=== PATIENT | female | born 1965 ===

== ENCOUNTER 2020-10-31 09:23 | Outpatient (REF) | payer OTHER, SELFPAY ==
[2020-10-31 10:52] LABS: Alanine Aminotransferase 8 U/L (0-31); Albumin Level 4.4 g/dL (3.5-5.0); Alkaline Phosphatase 102 U/L (39-117); Anion Gap 13 (12-20); Aspartate Amino Transferase 14 U/L (5-31); Bilirubin Total 0.5 mg/dL (0.0-1.0); Blood Urea Nitrogen 12 mg/dL (9-16); Calcium 9.3 mg/dL (8.4-10.2); Carbon Dioxide 26 mmol/L (22-29); Chloride 103 mmol/L (96-108); Cholesterol 234 mg/dL; Estimated Glomerular Filt Rate > 60; Glucose Random 96 mg/dL (60-115); HDL Cholesterol 42 mg/dL; LDL Cholesterol Calculated 159 mg/dl; Potassium 4.2 mmol/L (3.3-5.1); Sodium 138 mmol/L (135-145); Triglycerides 165 mg/dL
[2020-10-31 11:01] LABS: Thyroid Stimulating Hormone 10.46 uIU/mL (0.32-4.0)
== END 2020-10-31 09:24 | disposition home or self-care (01) ==
LOC: HO.10HDL 09:23
PROVIDERS: Visit Provider Internal Medicine
DX: E78.2 Mixed hyperlipidemia (principal); E89.0 Postprocedural hypothyroidism; F33.42 Major depressive disorder, recurrent, in full remission; K05.00 Acute gingivitis, plaque induced; Z72.0 Tobacco use
CPT/HCPCS: 36415; 80053; 80061; 84443

== ENCOUNTER 2020-12-19 07:40 | Outpatient (REF) | payer OTHER, SELFPAY ==
[2020-12-19 10:38] LABS: Alanine Aminotransferase 11 U/L (0-31); Alkaline Phosphatase 92 U/L (39-117); Anion Gap 13 (12-20); Aspartate Amino Transferase 14 U/L (5-31); Bilirubin Total 0.5 mg/dL (0.0-1.0); Blood Urea Nitrogen 12 mg/dL (9-16); Calcium 8.9 mg/dL (8.4-10.2); Carbon Dioxide 25 mmol/L (22-29); Chloride 106 mmol/L (96-108); Cholesterol 191 mg/dL; Estimated Glomerular Filt Rate > 60; Glucose Fasting 103 mg/dL (60-99); HDL Cholesterol 38 mg/dL; LDL Cholesterol Calculated 122 mg/dl; Potassium 4.2 mmol/L (3.3-5.1); Sodium 140 mmol/L (135-145); Total Protein 7.3 g/dL (6.5-8.0); Triglycerides 158 mg/dL
[2020-12-19 11:02] LABS: Thyroid Stimulating Hormone 7.94 uIU/mL (0.32-4.0)
== END 2020-12-19 07:41 | disposition home or self-care (01) ==
LOC: HO.10HDL 07:40
PROVIDERS: Visit Provider Internal Medicine
DX: Z00.01 Encounter for general adult medical examination with abnormal findings (principal); E03.9 Hypothyroidism, unspecified; E78.00 Pure hypercholesterolemia, unspecified; R07.89 Other chest pain
CPT/HCPCS: 36415; 80053; 80061; 84443

== ENCOUNTER → 2021-01-16 13:38 | Outpatient (BNVA) | payer OTHER, SELFPAY | PROVIDERS: PCP Internal Medicine; Visit Provider Internal Medicine Pulmonary Disease | DX: J45.909 Unspecified asthma, uncomplicated (principal); G47.33 Obstructive sleep apnea (adult) (pediatric) | CPT/HCPCS: 99202 ==

== ENCOUNTER → 2021-02-12 08:54 | Outpatient (REF) | payer OTHER, SELFPAY | LOC: HO.SL 08:54 | PROVIDERS: PCP Internal Medicine; Visit Provider Internal Medicine Pulmonary Disease | DX: G47.33 Obstructive sleep apnea (adult) (pediatric) (principal) | CPT/HCPCS: 95806 ==

== ENCOUNTER 2021-02-20 10:47 | Outpatient (REF) | payer OTHER, SELFPAY ==
--- NOTE | 2021-02-20 17:20 | PFT_ITS ---
INDICATION: Asthma. SPIROMETRY: The FEV1 to FVC 87% free bronchodilators. The patient had just used her albuterol, so therefore bronchodilators were not used. FEV1 of 1.7 L, which is 73% predicted; and an FVC of 2.16 L, which is 67% predicted. Maximum voluntary ventilation only 49% predicted. LUNG VOLUMES: Total lung capacity 78% predicted with an expiratory reserve volume of 28% predicted. DIFFUSION CAPACITY: DLCO 75% predicted, although does correct to normal 98% when correcting for the alveolar volume. COMPARISONS: Not available. INTERPRETATION: No obstructive ventilatory defects. Bronchodilators were not used since the patient had just used them. The patient does have a moderate decrease in the maximum voluntary ventilation, which could be secondary to deconditioning, although cannot rule out neuromuscular conditions. Lung volumes did demonstrate a mild restrictive ventilatory defect likely to do with her body habitus as her expiratory reserve volume is decreased to 28% predicted. However, cannot rule out occult interstitial lung conditions nor neuromuscular conditions at this time. The patient does have a mild diffusion impairment that does correct to normal when correcting for the alveolar volume. Clinical correlation warranted. If asthma is in the differential, methacholine challenge may be helpful in assessing for hyper-reactive airways, otherwise follow clinically. MD IRENE Benoit/MODDevorah / [id number]
== END 2021-02-20 10:48 | disposition home or self-care (01) ==
LOC: HO.RESP 10:47
PROVIDERS: PCP Internal Medicine; Visit Provider Internal Medicine Pulmonary Disease
DX: J45.909 Unspecified asthma, uncomplicated (principal)
CPT/HCPCS: 94010; 94727; 94729

== ENCOUNTER → 2021-03-01 13:41 | Outpatient (BNVA) | payer OTHER, SELFPAY | PROVIDERS: PCP Internal Medicine; Visit Provider Internal Medicine Pulmonary Disease | DX: J45.30 Mild persistent asthma, uncomplicated (principal); G47.33 Obstructive sleep apnea (adult) (pediatric) | CPT/HCPCS: 99212 ==

== ENCOUNTER → 2021-06-05 13:14 | Outpatient (BNVA) | payer OTHER, SELFPAY | PROVIDERS: PCP Internal Medicine; Visit Provider Internal Medicine Pulmonary Disease | DX: J45.30 Mild persistent asthma, uncomplicated (principal); G47.33 Obstructive sleep apnea (adult) (pediatric); F17.210 Nicotine dependence, cigarettes, uncomplicated | CPT/HCPCS: 99212 ==

== ENCOUNTER 2021-07-17 09:34 | Outpatient (REF) | payer OTHER, SELFPAY ==
[2021-07-17 11:21] LABS: MANUAL DIFF FLAG NO
[2021-07-17 11:55] LABS: Basophils Absolute Auto 0.1 X10*3/uL (0.0-0.2); Basophils Percent Auto 0.8 % (0-2); Eosinophils Absolute Auto 0.2 X10*3/uL (0.0-0.4); Eosinophils Percent Auto 1.8 % (0-4); Hematocrit 40.4 % (37.0-47.0); Hemoglobin 12.7 g/dl (12.0-16.0); Imm Gran Abs Auto 0.02 X10*3/uL (0.00-0.03); Imm Gran Pct Auto 0.2 % (0.0-0.4); Lymphocytes Absolute Auto 3.2 X10*3/uL (1.2-4.9); Mean Corpuscular HGB Conc 31.4 g/dl (31.0-35.0); Mean Corpuscular Hemoglobin 27.1 pg (27.0-33.0); Mean Corpuscular Volume 86.3 fL (80.0-98.0); Mean Platelet Volume 11.2 fL (9.4-12.3); Monocytes Absolute Auto 0.4 X10*3/uL (0.1-1.2); Monocytes Percent Auto 4.8 % (2-11); Neutrophils Percent Auto 56.4 % (45-73); Platelet Count 298 X10*3/uL (160-400); Red Blood Count 4.68 X10*6/uL (4.20-5.50); Red Cell Distribution Width 14.4 % (11.0-16.0); White Blood Count 8.9 X10*3/uL (4.8-10.8)
[2021-07-17 12:16] LABS: Alanine Aminotransferase 12 U/L (0-31); Albumin Level 4.2 g/dL (3.5-5.0); Alkaline Phosphatase 100 U/L (39-117); Anion Gap 14 (12-20); Aspartate Amino Transferase 17 U/L (5-31); Bilirubin Total 0.7 mg/dL (0.0-1.0); Blood Urea Nitrogen 11 mg/dL (9-16); Calcium 9.8 mg/dL (8.4-10.2); Carbon Dioxide 26 mmol/L (22-29); Chloride 106 mmol/L (96-108); Cholesterol 205 mg/dL; Estimated Glomerular Filt Rate > 60; Glucose Fasting 106 mg/dL (60-99); HDL Cholesterol 41 mg/dL; LDL Cholesterol Calculated 140 mg/dl; Potassium 4.6 mmol/L (3.3-5.1); Sodium 141 mmol/L (135-145); Total Protein 7.6 g/dL (6.5-8.0); Triglycerides 123 mg/dL
[2021-07-17 12:18] LABS: Thyroid Stimulating Hormone 6.94 uIU/mL (0.32-4.0)
== END 2021-07-17 09:35 | disposition home or self-care (01) ==
LOC: HO.HMGCLDS 09:34
PROVIDERS: Visit Provider Internal Medicine
DX: D50.9 Iron deficiency anemia, unspecified (principal); E89.0 Postprocedural hypothyroidism; I10 Essential (primary) hypertension; Z72.0 Tobacco use
CPT/HCPCS: 36415; 80053; 80061; 84443; 85025

== ENCOUNTER → 2021-09-20 10:52 | Outpatient (BNVA) | payer OTHER, SELFPAY | PROVIDERS: PCP Internal Medicine; Visit Provider Internal Medicine | DX: R07.89 Other chest pain (principal); J45.909 Unspecified asthma, uncomplicated; G47.33 Obstructive sleep apnea (adult) (pediatric) | CPT/HCPCS: 99212 ==

== ENCOUNTER → 2021-10-10 12:56 | Outpatient (BNVA) | payer OTHER, SELFPAY | PROVIDERS: PCP Internal Medicine; Visit Provider Internal Medicine Pulmonary Disease | DX: J45.909 Unspecified asthma, uncomplicated (principal); G47.33 Obstructive sleep apnea (adult) (pediatric) | CPT/HCPCS: 99212 ==

== ENCOUNTER 2021-11-08 09:28 | Outpatient (REF) | payer OTHER, SELFPAY ==
[2021-11-08 11:32] LABS: Thyroid Stimulating Hormone 4.19 uIU/mL (0.32-4.0)
[2021-11-08 12:13] LABS: Cholesterol 173 mg/dL; HDL Cholesterol 43 mg/dL; LDL Cholesterol Calculated 107 mg/dl; Triglycerides 117 mg/dL
== END 2021-11-08 09:29 | disposition home or self-care (01) ==
LOC: HO.LAB 09:28
PROVIDERS: PCP Internal Medicine; Visit Provider Internal Medicine
DX: E03.8 Other specified hypothyroidism (principal); E78.00 Pure hypercholesterolemia, unspecified; G47.33 Obstructive sleep apnea (adult) (pediatric); J45.909 Unspecified asthma, uncomplicated; M54.89 Other dorsalgia
CPT/HCPCS: 36415; 80061; 84443

== ENCOUNTER → 2022-01-09 12:42 | Outpatient (BNVA) | payer OTHER, SELFPAY | PROVIDERS: PCP Internal Medicine; Visit Provider Internal Medicine Pulmonary Disease | DX: J45.909 Unspecified asthma, uncomplicated (principal); G47.33 Obstructive sleep apnea (adult) (pediatric) | CPT/HCPCS: 99212 ==

== ENCOUNTER → 2022-03-11 11:21 | Outpatient (BNVA) | payer OTHER, SELFPAY | PROVIDERS: PCP Internal Medicine; Visit Provider Internal Medicine Pulmonary Disease | DX: J45.30 Mild persistent asthma, uncomplicated (principal); G47.33 Obstructive sleep apnea (adult) (pediatric); E66.9 Obesity, unspecified; Z68.38 Body mass index [BMI] 38.0-38.9, adult | CPT/HCPCS: 99212 ==

== ENCOUNTER 2022-03-13 09:46 | Outpatient (REF) | payer OTHER, SELFPAY ==
[2022-03-13 11:14] LABS: Estimated Average Glucose 117 mg/dL; Hemoglobin A1c % 5.7 %
[2022-03-13 15:07] LABS: Alanine Aminotransferase 12 U/L (0-31); Albumin Level 4.1 g/dL (3.5-5.0); Alkaline Phosphatase 126 U/L (39-117); Anion Gap 13 (12-20); Aspartate Amino Transferase 15 U/L (5-31); Bilirubin Total 0.6 mg/dL (0.0-1.0); Blood Urea Nitrogen 12 mg/dL (9-16); Calcium 9.5 mg/dL (8.4-10.2); Carbon Dioxide 26 mmol/L (22-29); Chloride 107 mmol/L (96-108); Estimated Glomerular Filt Rate > 60; Glucose Random 97 mg/dL (60-115); Potassium 4.7 mmol/L (3.3-5.1); Sodium 141 mmol/L (135-145); Thyroid Stimulating Hormone 2.41 uIU/mL (0.32-4.0); Total Protein 7.2 g/dL (6.5-8.0)
== END 2022-03-13 09:47 | disposition home or self-care (01) ==
LOC: HO.LAB 09:46
PROVIDERS: PCP Internal Medicine; Visit Provider Internal Medicine
DX: Z00.00 Encounter for general adult medical examination without abnormal findings (principal); E03.8 Other specified hypothyroidism; I10 Essential (primary) hypertension; M23.91 Unspecified internal derangement of right knee; R73.01 Impaired fasting glucose; G47.33 Obstructive sleep apnea (adult) (pediatric); E78.00 Pure hypercholesterolemia, unspecified
CPT/HCPCS: 36415; 80053; 83036; 84443

== ENCOUNTER 2022-06-20 10:28 | Outpatient (REF) | payer MEDICARE, MEDICAID, SELFPAY ==
[2022-06-20 13:21] LABS: MANUAL DIFF FLAG NO
[2022-06-20 13:29] LABS: Basophils Absolute Auto 0.1 X10*3/uL (0.0-0.2); Basophils Percent Auto 0.8 % (0-2); Eosinophils Absolute Auto 0.4 X10*3/uL (0.0-0.4); Eosinophils Percent Auto 4.5 % (0-4); Hematocrit 37.6 % (37.0-47.0); Hemoglobin 11.8 g/dl (12.0-16.0); Imm Gran Abs Auto 0.03 X10*3/uL (0.00-0.03); Imm Gran Pct Auto 0.3 % (0.0-0.4); Lymphocytes Absolute Auto 3.4 X10*3/uL (1.2-4.9); Lymphocytes Percent Auto 37.5 % (20-40); Mean Corpuscular HGB Conc 31.4 g/dl (31.0-35.0); Mean Corpuscular Hemoglobin 26.5 pg (27.0-33.0); Mean Corpuscular Volume 84.3 fL (80.0-98.0); Mean Platelet Volume 10.6 fL (9.4-12.3); Monocytes Absolute Auto 0.4 X10*3/uL (0.1-1.2); Monocytes Percent Auto 4.8 % (2-11); Neutrophils Absolute Auto 4.7 x10*3/uL (2.0-8.3); Neutrophils Percent Auto 52.1 % (45-73); Platelet Count 287 X10*3/uL (160-400); Red Blood Count 4.46 X10*6/uL (4.20-5.50); Red Cell Distribution Width 14.9 % (11.0-16.0)
[2022-06-20 14:09] LABS: Erythrocyte Sedimentation Rate 38 MM/HR (0-20)
[2022-06-20 14:43] LABS: Rheumatoid Factor < 13.0 IU/mL (<15.0)
[2022-06-24 16:18] LABS: Cyclic Citrullinated Peptide <16 UNITS
[2022-06-25 13:44] LABS: ANA Pattern 2 Nuclear, Homogeneous; Anti Nuclear Antibody Screen POSITIVE (NEGATIVE); Anti Nuclear Antibody Titer 1:40 titer
== END 2022-06-20 10:29 | disposition home or self-care (01) ==
LOC: HO.10HDL 10:28
PROVIDERS: Visit Provider Internal Medicine
DX: E78.00 Pure hypercholesterolemia, unspecified (principal); I10 Essential (primary) hypertension; M13.0 Polyarthritis, unspecified; M79.18 Myalgia, other site
CPT/HCPCS: 36415; 82550; 85025; 85652; 86038; 86039; 86200; 86431

== ENCOUNTER 2022-11-18 09:11 | Outpatient (REF) | payer MEDICARE, MEDICAID, SELFPAY ==
[2022-11-18 11:06] LABS: Alanine Aminotransferase 13 U/L (0-31); Albumin Level 4.2 g/dL (3.5-5.0); Alkaline Phosphatase 116 U/L (39-117); Anion Gap 10 (12-20); Aspartate Amino Transferase 14 U/L (5-31); Bilirubin Total 0.5 mg/dL (0.0-1.0); Blood Urea Nitrogen 9 mg/dL (9-16); Calcium 10.1 mg/dL (8.4-10.2); Carbon Dioxide 29 mmol/L (22-29); Chloride 104 mmol/L (96-108); Cholesterol 147 mg/dL (<200); Estimated Glomerular Filt Rate > 60; Glucose Random 96 mg/dL (60-115); HDL Cholesterol 40 mg/dL (>40); LDL Cholesterol Calculated 85 mg/dL (<100); Potassium 4.3 mmol/L (3.3-5.1); Sodium 139 mmol/L (135-145); Total Protein 8.1 g/dL (6.5-8.0); Triglycerides 113 mg/dL (<150)
[2022-11-18 11:21] LABS: Thyroid Stimulating Hormone 14.45 uIU/mL (0.32-4.0)
== END 2022-11-18 09:12 | disposition home or self-care (01) ==
LOC: HO.10HDL 09:11
PROVIDERS: Visit Provider Internal Medicine
DX: E03.8 Other specified hypothyroidism (principal); M13.0 Polyarthritis, unspecified; M70.51 Other bursitis of knee, right knee; M79.18 Myalgia, other site
CPT/HCPCS: 36415; 80053; 80061; 84443

== ENCOUNTER 2022-11-22 11:06 | Outpatient (AMB) | payer MEDICARE, MEDICAID, SELFPAY ==
--- NOTE | 2022-11-22 11:06 | MHC.OFFVIS ---
Intake Vital Signs 11/22/22 11:07 Height 5 ft 3 in Weight 212 lb 11.937 oz BMI 37.7 BP 126/82 Blood Pressure Location Lt brachial Position Sitting Pulse 62 Pulse Source Doppler Pulse Oximetry (%) 97 Oxygen Delivery Method Room Air Intake Visit Reasons: asthma Allergies No Known Allergies Allergy (Verified 11/22/22 11:11) HPI asthma HPI Details 57-year-old lady, active 20+ pack-year smoker, followed for mild persistent asthma and moderate obstructive sleep apnea.? She continues to use Flovent 110 with good control of her underlying symptoms.? Patient has received her CPAP machine and has been using it with good control of her underlying symptoms. She denies recent exacerbations. [facility] Social History (Updated 11/22/22 @ 11:12 by OSMEL Huang) Patient Tobacco Use Status: Current everyday Tobacco user Cigarettes Per Day: 3 Review of Systems Const Denies daytime sleepiness, Denies excessive sweating, Denies fatigue, Denies fever(s), Denies lethargy, Denies malaise, Denies night sweats, Denies snoring and Denies weight loss Eyes Denies blurry vision and Denies itchy eyes ENT Denies nasal congestion, Denies post nasal drip, Denies sinus pain, Denies sinus pressure and Denies other ( Thrush) Card Denies chest pain, Denies pedal edema, Denies dyspnea, Denies orthopnea and Denies paroxysmal nocturnal dyspnea Resp Denies cough, Denies hemoptysis, Denies excessive phlegm production, Denies dyspnea, Denies snoring and Denies wheezing GI Denies abdominal pain and Denies heartburn Musc Denies myalgias, Denies arthralgias and Denies joint swelling Skin/Breast Denies rash Neuro Denies memory loss and Denies seizure-like activity Psych Denies abnormal sleep pattern, Denies anxiety and Denies memory loss Endo Denies excessive sweating, Denies fatigue and Denies heat intolerance Zhen/Lymph Denies easy bruising Aller/Immun Denies itchy eyes, Denies seasonal rhinorrhea and Denies wheezing Physical Exam Vital Signs: Last Vital Signs Pulse 62 11/22/22 11:07 BP 126/82 11/22/22 11:07 Pulse Ox 97 11/22/22 11:07 Oxygen Delivery Method Room Air 11/22/22 11:07 BMI result Body Mass Index 37.7 Const General: no acute distress and alert Nutritional Appearance: obese Orientation/consciousness: Other orientation findings ( oriented) HEENT Head: Yes atraumatic Eyes General: appearance normal, both eyes and all related structures Sclerae: sclerae normal EOM: EOMs intact bilaterally Neck Neck: Yes supple Lymphatic: no lymphadenopathy noted Resp Effort & Inspection: normal respiratory effort and no use of accessory muscles Auscultation: clear to auscultation bilaterally Cardio Rate: regular rate Rhythm: regular rhythm Heart sounds: no gallops, no murmurs and no rubs Skin General skin exam: other ( warm) Extrem General: No clubbing, No cyanosis and No edema Assessment & Plan Assessment & Plan (1) Asthma: Code(s): J45.909 - Unspecified asthma, uncomplicated Plan: Well controlled on current regimen of Flovent and albuterol MDI. Continue current regimen. (2) DELANO (obstructive sleep apnea): Code(s): G47.33 - Obstructive sleep apnea (adult) (pediatric) Plan: Well controlled on current CPAP therapy. Continue current CPAP therapy. Coding Level of Care Code Est Pt Level 4 (04819) Diagnoses Asthma J45.909 DELANO (obstructive sleep apnea) G47.33
[2022-11-22 11:07] VITALS: BP 126/82; PULSE 62; O2SAT 97; BMI 37.7
== END 2022-11-22 11:19 | disposition home or self-care (01) ==
PROVIDERS: PCP Internal Medicine; Visit Provider Internal Medicine Pulmonary Disease
DX: J45.909 Unspecified asthma, uncomplicated (principal); G47.33 Obstructive sleep apnea (adult) (pediatric)
CPT/HCPCS: 99214

== ENCOUNTER → 2022-11-22 11:06 | Outpatient (BNVA) | payer MEDICARE, MEDICAID, SELFPAY | PROVIDERS: PCP Internal Medicine; Visit Provider Internal Medicine Pulmonary Disease | DX: J45.30 Mild persistent asthma, uncomplicated (principal); G47.33 Obstructive sleep apnea (adult) (pediatric); F17.210 Nicotine dependence, cigarettes, uncomplicated; Z79.899 Other long term (current) drug therapy; Z99.89 Dependence on other enabling machines and devices | CPT/HCPCS: 99212 ==

== ENCOUNTER 2023-01-01 14:56 | Outpatient (AMB) | payer MEDICARE, MEDICAID, SELFPAY ==
--- NOTE | 2023-01-01 15:10 | MHC.OFFVIS ---
Intake Vital Signs 01/01/23 15:12 Height 5 ft 3 in Weight 212 lb 15.465 oz BMI 37.7 BP 110/75 Blood Pressure Location Rt brachial Position Sitting Pulse 72 Pulse Source Pulse Oximeter Temp 97.3 F Temp Source Skin Pulse Oximetry (%) 95 Oxygen Delivery Method Room Air Intake Visit Reasons: Polyarthralgia Intake Note: New patient here today for polyarthralgia. c/o generalized myalgias Last Code Striper Required: Yes Last Code Striper Language: Geriatric Assistant Name: Ranjith [id number] Information Interpreted: clinical only Accompanied by: Self / Same As Patient Allergies No Known Allergies Allergy (Verified 01/01/23 15:15) Medication List - Last Reconciled 01/01/23 by Isai Langford MD bupropion HCl 450 mg PO QAM fluticasone propionate 110 mcg/actuation 2 puffs inhalation BID ibuprofen 600 mg PO TID levothyroxine 100 mcg PO DAILY lorazepam 0.5 mg PO DAILY PRN rosuvastatin 40 mg PO DAILY valsartan-hydrochlorothiazide 320-12.5 mg 1 tab PO DAILY HPI HPI Comments History of Present Illness Details This is a 57-year-old female who presents for evaluation of a positive FRANCESCA. Patient states that she has multiple joints and tendons that crack including her knees, shoulders, elbows. It is usually worse in the morning and improves on the rest of the day. She denies any skin rashes. She believes that her aunt has rheumatoid arthritis. She denies any history of DVT/PE. Patient had 4 pregnancies with no abortions or miscarriages. Denies any swollen joints. [facility] Surgical History History of ear surgery H/O eye surgery Family History Father Cancer of pancreas Mother Diabetes Other Arthritis Thyroid disease Social History Household Members: Children Patient Tobacco Use Status: Current everyday Tobacco user Cigarettes Per Day: 3 Current occupational status: disabled Female Reproductive History Menstrual Total pregnancies: 4 Review of Systems Const Reports weakness Eyes Reports eye pain GI Reports heartburn Musc Reports arthralgias Neuro Reports weakness Physical Exam Vital Signs: Last Vital Signs Temp 97.3 F 10/04/23 15:12 Pulse 72 01/01/23 15:12 BP 110/75 01/01/23 15:12 Pulse Ox 95 01/01/23 15:12 Oxygen Delivery Method Room Air 01/01/23 15:12 BMI result Body Mass Index 37.7 Const General: cooperative, healthy appearing and comfortable Nutritional Appearance: obese Orientation/consciousness: patient oriented x3 Limitations: no limitations HEENT Head: Yes normocephalic and Yes atraumatic Mouth: moist mucous membranes Resp Effort & Inspection: normal respiratory effort and able to speak in complete sentences Auscultation: clear to auscultation bilaterally Cardio Rate: regular rate Rhythm: regular rhythm GI Inspection: No distended Palpation (GI): Soft to palpation and nontender Skin General skin exam: no rashes or lesions noted Neuro General: patient oriented x3 Extrem Other: Mild osteoarthritic changes of both hands with no active synovitis Normal nailfold capillaroscopy Normal range of motion of both shoulders , elbows and knees without pain Assessment & Plan Assessment & Plan (1) FRANCESCA positive: Code(s): R76.8 - Other specified abnormal immunological findings in serum Plan: This is a 57-year-old female who presents for evaluation of a positive FRANCESCA 1-80 homogeneous and 1-40 cytoplasmic/reticular. I do not see any evidence of an autoimmune rheumatic disease upon my evaluation. Explained to patient that 20% of the population can have a positive FRANCESCA with no underlying autoimmune rheumatic disease. The significance of her positive FRANCESCA is unclear and can be related to her thyroid disease. Follow-up for any new or worsening symptoms Plan I spent 30 minutes reviewing patient's chart, evaluating patient, counseling patient and documenting in the chart Coding Level of Care Code New Pt Level 3 (02993) Diagnoses FRANCESCA positive R76.8
[2023-01-01 15:12] VITALS: BP 110/75; PULSE 72; TEMP 36.3; O2SAT 95; BMI 37.7
== END 2023-01-01 15:54 | disposition home or self-care (01) ==
PROVIDERS: PCP Internal Medicine; Visit Provider Student in an Organized Health Care Education/Training Program
DX: R76.8 Other specified abnormal immunological findings in serum (principal)
CPT/HCPCS: 99203

== ENCOUNTER → 2023-01-01 14:56 | Outpatient (BNVA) | payer MEDICARE, MEDICAID, SELFPAY | PROVIDERS: PCP Internal Medicine; Visit Provider Student in an Organized Health Care Education/Training Program ==

== ENCOUNTER 2023-01-31 09:23 | Outpatient (REF) | payer MEDICARE, MEDICAID, SELFPAY ==
[2023-01-31 11:22] LABS: Thyroid Stimulating Hormone 4.86 uIU/mL (0.32-4.0)
== END 2023-01-31 09:24 | disposition home or self-care (01) ==
LOC: HO.10HDL 09:23
PROVIDERS: Visit Provider Internal Medicine
DX: E03.8 Other specified hypothyroidism (principal); E78.00 Pure hypercholesterolemia, unspecified; I10 Essential (primary) hypertension; K12.0 Recurrent oral aphthae
CPT/HCPCS: 36415; 84443

== ENCOUNTER 2023-12-10 10:43 | Outpatient (AMB) | payer MEDICARE, MEDICAID, SELFPAY ==
[2023-12-10 10:52] VITALS: BP 106/62; PULSE 71; O2SAT 97; BMI 37.3
--- NOTE | 2023-12-10 10:52 | MHC.OFFVIS ---
Vital Signs 12/10/23 10:52 Height 5 ft 3 in Weight 210 lb 8.663 oz BMI 37.3 BP 106/62 Blood Pressure Location Lt brachial Position Sitting Pulse 71 Pulse Source Doppler Pulse Oximetry (%) 97 Oxygen Delivery Method Room Air Intake Visit Reasons: CPAP supplies Senior Human Resources Representative Required: Yes Senior Human Resources Representative Name: Daisy hummel Torres Allergies No Known Allergies Allergy (Verified 01/01/23 15:15) HPI HPI CPAP supplies: Details: 58-year-old lady, active 20+ pack-year smoker, followed for mild persistent asthma and moderate obstructive sleep apnea.? She continues to use Flovent 110 with good control of her underlying symptoms.? She also has been using CPAP with good control of her underlying symptoms. She denies recent exacerbations. [facility] Surgical History History of ear surgery H/O eye surgery Family History Father Cancer of pancreas Mother Diabetes Other Arthritis Thyroid disease Social History Household Members: Children Patient Tobacco Use Status: Current everyday Tobacco user Cigarettes Per Day: 3 Current occupational status: disabled Review of Systems Const Denies daytime sleepiness, Denies excessive sweating, Denies fatigue, Denies fever(s), Denies lethargy, Denies malaise, Denies night sweats, Denies snoring and Denies weight loss Eyes Denies blurry vision and Denies itchy eyes ENT Denies nasal congestion, Denies post nasal drip, Denies sinus pain, Denies sinus pressure and Denies other ( Thrush) Card Denies chest pain, Denies pedal edema, Denies dyspnea, Denies orthopnea and Denies paroxysmal nocturnal dyspnea Resp Denies cough, Denies hemoptysis, Denies excessive phlegm production, Denies dyspnea, Denies snoring and Denies wheezing GI Denies abdominal pain and Denies heartburn Musc Denies myalgias, Denies arthralgias and Denies joint swelling Skin/Breast Denies rash Neuro Denies memory loss and Denies seizure-like activity Psych Denies abnormal sleep pattern, Denies anxiety and Denies memory loss Endo Denies excessive sweating, Denies fatigue and Denies heat intolerance Zhen/Lymph Denies easy bruising Aller/Immun Denies itchy eyes, Denies seasonal rhinorrhea and Denies wheezing Physical Exam Vital Signs: Last Vital Signs Pulse 71 12/10/23 10:52 BP 106/62 12/10/23 10:52 Pulse Ox 97 12/10/23 10:52 Oxygen Delivery Method Room Air 12/10/23 10:52 BMI result Body Mass Index 37.3 Const General: no acute distress and alert Nutritional Appearance: obese Orientation/consciousness: Other orientation findings ( oriented) HEENT Head: Yes atraumatic Eyes General: appearance normal, both eyes and all related structures Sclerae: sclerae normal EOM: EOMs intact bilaterally Neck Neck: Yes supple Lymphatic: no lymphadenopathy noted Resp Effort & Inspection: normal respiratory effort and no use of accessory muscles Auscultation: clear to auscultation bilaterally Cardio Rate: regular rate Rhythm: regular rhythm Heart sounds: no gallops, no murmurs and no rubs Skin General skin exam: other ( warm) Extrem General: No clubbing, No cyanosis and No edema Assessment & Plan Assessment & Plan (1) Asthma: Code(s): J45.909 - Unspecified asthma, uncomplicated Category: Medical Plan: Well controlled on current regimen of Flovent and albuterol MDI. Continue current regimen. (2) DELANO (obstructive sleep apnea): Code(s): G47.33 - Obstructive sleep apnea (adult) (pediatric) Category: Medical Plan: Well controlled on CPAP therapy. Continue CPAP therapy. Coding Level of Care Code Est Pt Level 4 (60276) Diagnoses Asthma J45.909 DELANO (obstructive sleep apnea) G47.33
== END 2023-12-10 11:15 | disposition home or self-care (01) ==
PROVIDERS: PCP Internal Medicine; Visit Provider Internal Medicine Pulmonary Disease
DX: J45.909 Unspecified asthma, uncomplicated (principal); G47.33 Obstructive sleep apnea (adult) (pediatric)
CPT/HCPCS: 99214

== ENCOUNTER → 2023-12-10 10:43 | Outpatient (BNVA) | payer MEDICARE, MEDICAID, SELFPAY | PROVIDERS: PCP Internal Medicine; Visit Provider Internal Medicine Pulmonary Disease | DX: G47.33 Obstructive sleep apnea (adult) (pediatric) (principal); J45.30 Mild persistent asthma, uncomplicated; F17.210 Nicotine dependence, cigarettes, uncomplicated; Z99.89 Dependence on other enabling machines and devices | CPT/HCPCS: 99212 ==

== ENCOUNTER 2024-06-01 14:35 | Emergency (ER) | payer MEDICARE, MEDICAID, SELFPAY ==
--- NOTE | ~2024-06-01 | XR_ITS ---
EXAMINATION: XR CHEST CLINICAL INFORMATION: CP COMPARISON: May 02, 2018 TECHNIQUE: 2 views of the chest were obtained. FINDINGS: No consolidation, pleural effusion or pneumothorax. Cardiomediastinal silhouette size is normal. Multilevel thoracolumbar spondylosis. S-shaped curvature of the thoracolumbar spine. Degenerative changes in the acromioclavicular joints. XR/XR chest 2V IMPRESSION: No acute airspace disease. Scoliosis and spondylosis, thoracolumbar spine. Electronically signed by: Kendrick Pennington MD 06/01/2024 03:20 PM NIKO RODARTE
--- NOTE | 2024-06-01 14:36 | ECG_ITS ---
Test Reason : chest pain Blood Pressure : */* mmHG Vent. Rate : 60 BPM Atrial Rate : 60 BPM P-R Int : 156 ms QRS Dur : 90 ms QT Int : 382 ms P-R-T Axes : 34 68 39 degrees QTcB Int : 382 ms Normal sinus rhythm Normal ECG When compared with ECG of 02-May-2018 08:52, No significant change was found Referred By: Generic ED Physician Electronically Signed By: ELIZA ARCINIEGA MD
[2024-06-01 14:54] VITALS: BP 143/71; PULSE 66; RESP 16; TEMP 36.7; O2SAT 98; BMI 35.8
--- NOTE | 2024-06-01 14:59 | ED.CHESTPAIN ---
HPI - Chest Pain General Chief Complaint: Chest Pain Stated Complaint: Chest pain, numbness L arm Time Seen by Provider: 06/02/24 02:22 Source: patient Mode of arrival: ambulatory Limitations: no limitations History of Present Illness ED Provider: Dr. Rachel Orr HPI narrative: Patient comes to the emergency room complaining of epigastric and chest burning sensation. Patient states that she gets this symptoms often especially when she eats certain foods. Patient states that she ran out of her medications for GERD a few weeks ago and everything that she eats, she feels that burning sensation. Denies chest pain, patient states that sometimes she feels a bit of spasms on the left side of the upper back but no chest pain. Patient denies nausea vomiting or diarrhea. Patient reports that her symptoms have been intermittent for several years. Patient has never been seen by Gastroenterology. Related Data Home Medications ?Medication ?Instructions ?Recorded ?Confirmed fluticasone propionate 110 2 puff inhalation BID 01/16/21 09/20/21 mcg/actuation HFA aerosol inhaler levothyroxine 100 mcg tablet 100 mcg PO DAILY 01/16/21 09/20/21 valsartan 320 1 tab PO DAILY 01/16/21 09/20/21 mg-hydrochlorothiazide 12.5 mg tablet ibuprofen 600 mg tablet 600 mg PO TID 10/10/21 bupropion HCl 300 mg 24 hr tablet, 450 mg PO QAM 01/01/23 extended release lorazepam 0.5 mg tablet 0.5 mg PO DAILY PRN 01/01/23 rosuvastatin 40 mg tablet 40 mg PO DAILY 01/01/23 Previous Rx's ?Medication ?Instructions ?Recorded omeprazole 40 mg capsule,delayed 40 mg PO DAILY #90 caps 06/02/24 release Allergies Allergy/AdvReac Type Severity Reaction Status Date / Time No Known Allergies Allergy Verified 06/01/24 15:01 Review of Systems Review of Systems: Constitutional : No Weight loss, No Fever, No Chills, No Night Sweats, No Fatigue, No Malaise ENT/Mouth : No Hearing loss, No Ear Pain, No Nasal Congestion, No Sinus Pain, No Hoarseness, No sore throat, No Rhinorrhea, No Swallowing Difficulty Eyes: No Eye Pain, No Swelling, No Redness, No Foreign Body, No Discharge, No Vision Changes Cardiovascular : No Chest Pain, No SOB, No Dyspnea on Exertion, No Orthopnea, No Edema, No Palpitations Respiratory : No Cough, No Sputum, No Wheezing, No Smoke Exposure, No Dyspnea Gastrointestinal : No Nausea, No Vomiting, No Diarrhea, No Constipation, complaining of epigastric burning sensation radiating up the esophagus to the throat, No abdominal Pain, No Hematochezia, No Melena Genitourinary : no irregular bleeding, No Dysuria, No Urinary Frequency, No Hematuria, No Urinary Incontinence, No Urgency, No Flank Pain, No Urinary Flow Changes, No Hesitancy Musculoskeletal : No joint pain, No Myalgias, No Joint Swelling Skin : No Skin Lesions, No rash Neuro : No Weakness, No Numbness, No Paresthesias, No Loss of Consciousness, No Dizziness, No Headache Psych : No Anxiety/Panic, No Depression, No SI/HI/AH/VH, No Social Issues, Heme/Lymph: No Bruising, No Bleeding,No Lymphadenopathy Endocrine : No Polyuria, No Polydipsia, No Temperature Intolerance [facility] Past Medical History Medical History GERD (gastroesophageal reflux disease) Asthma Surgical History History of ear surgery H/O eye surgery Family History Family History Father Cancer of pancreas Mother Diabetes Other Arthritis Thyroid disease Social History Social History Household Members: Children Patient Tobacco Use Status: Current everyday Tobacco user Cigarettes Per Day: 3 Smoked in Last 30 Days: Yes Use of substances other than those prescribed or required for medical reasons: No Advance Directives: No Advance Directives Information Provided: Yes Patient : No Current occupational status: disabled Physical Exam Vital Signs: Vital Signs: Last Vital Signs Temp 98.7 F 06/02/24 02:36 Pulse 66 06/02/24 02:36 Resp 16 06/02/24 02:36 BP 141/69 H 06/02/24 02:36 Pulse Ox 96 06/02/24 02:36 O2 Del Method Room Air 06/02/24 02:36 BMI result Body Mass Index 35.8 Const: Other: Appearance: Alert. Oriented X3. No acute distress. Eyes: Pupils equal, round and reactive to light. ENT: Pharynx normal. Neck: Normal inspection. Neck supple. No lymph nodes noted. No crepitus CVS: Normal heart rate and rhythm. Pulses normal. Normal S1 and S2 Respiratory: No respiratory distress. Breath sounds normal. No Wheezing. No rales Abdomen: Soft and nontender. No rigidity. No distention. Skin: Skin warm and dry. Normal skin color. Normal skin turgor. Extremities: No lower extremity edema. No Lacerations. No Rash Neuro: Oriented X 3. No motor deficit. No sensory deficit. Moving all extremities. No slurred speech. CN 2 through 12 grossly intact Psych: calm, cooperative, normal affect Course Course Course Narrative: This is an RME: Additional HPI, ROS, PE not included below will be deferred to primary provider. RME assessment and note performed by: Yuridia Bond PA-C This is a 58-year-old Swedish-speaking female, with a history of asthma, DELANO, who presents emergency department with complaints of intermittentchest pain x 3 days. Denies any cough, nausea, vomiting. she was pain comes and goes for a minute and resolved on own. had COVID 3 weeks ago. Recent travel, surgery, hospitalizations. does report pain worsens eating spicy foods. Admits that she was getting more heartburn lately Plan: Labs chest x-ray evaluation needs Medications Administered Discontinued Medications Generic Name Dose Route Start Last Admin Trade Name Freq PRN Reason Stop Dose Admin Al Hydroxide/Mg Hydroxide 30 ml 06/02/24 02:34 06/02/24 02:46 Magnesium Hydrox/Alum Hydrox 30 Ml Oral.Susp PO 06/02/24 02:35 30 ml ONCE ONE Administration Famotidine 20 mg 06/02/24 02:35 06/02/24 02:46 Famotidine 20 Mg Tablet PO 06/02/24 02:36 20 mg ONCE ONE Administration Lidocaine HCl 15 ml 06/02/24 02:34 06/02/24 02:46 Lidocaine Hcl Viscous 2 % 15 Ml Solution MUCOUS MEM 06/02/24 02:35 15 ml ONCE ONE Administration Medical Decision Making Medical Decision Making [facility] Narrative: My interpretation of labs: Patient's white blood cell count 12.2, chemistry within normal limits, troponin x2 negative, LFTs normal. Serology negative for flu RSV and COVID. Chest x-ray does not show any acute abnormality. Chest x-ray: No acute airspace disease, no free air under the diaphragm Patient being given a GI cocktail including famotidine, viscous lidocaine and Maalox Patient feeling better. Patient instructed to follow-up with her PCP and GI Differential Diagnosis Differential Diagnoses: The differential diagnosis associated with the presentation includes (ACS, GERD, gastritis) Lab Data MDM Lab Attestation statement: I reviewed the patient's lab results. 06/01/24 18:02 06/01/24 18:02 Labs: Lab Results 06/01/24 06/02/24 Range/Units 18:02 00:04 WBC 12.2 H (4.8-10.8) X10*3/uL RBC 4.85 (4.20-5.50) X10*6/uL Hgb 13.1 (12.0-16.0) g/dl Hct 40.4 (37.0-47.0) % MCV 83.3 (80.0-98.0) fL MCH 27.0 (27.0-33.0) pg MCHC 32.4 (31.0-35.0) g/dl RDW 14.2 (11.0-16.0) % Plt Count 306 (160-400) X10*3/uL MPV 10.2 (9.4-12.3) fL Immature Gran % (Auto) 0.3 (0.0-0.4) % Neut % (Auto) 54.7 (45-73) % Lymph % (Auto) 36.8 (20-40) % [place] % (Auto) 4.4 (2-11) % Eos % (Auto) 3.1 (0-4) % Baso % (Auto) 0.7 (0-2) % Lymph # (Auto) 4.5 (1.2-4.9) X10*3/uL [place] # (Auto) 0.5 (0.1-1.2) X10*3/uL Eos # (Auto) 0.4 (0.0-0.4) X10*3/uL Baso # (Auto) 0.1 (0.0-0.2) X10*3/uL Abs Immat Gran (auto) 0.04 H (0.00-0.03) X10*3/uL Absolute Neuts (auto) 6.7 (2.0-8.3) x10*3/uL Absolute Nucleated RBC 0.000 (0.0-0.012) X10*3/uL Nucleated RBC % (auto) 0.0 (0.0-0.2) /100WBC Sodium 141 (135-145) mmol/L Potassium 4.4 (3.3-5.1) mmol/L Chloride 107 (96-108) mmol/L Carbon Dioxide 26 (22-29) mmol/L Anion Gap 12 (12-20) BUN 10 (9-16) mg/dL Creatinine 0.75 (0.5-1.4) mg/dL Estim Creat Clear Calc 86.8 Estimated GFR > 60 Random Glucose 89 (60-115) mg/dL Calcium 9.4 D (8.4-10.2) mg/dL Magnesium 2.5 (1.6-2.6) mg/dL Total Bilirubin 0.3 (0.0-1.0) mg/dL Direct Bilirubin 0.1 (0.0-0.5) mg/dL AST 19 (5-31) U/L ALT 16 (0-31) U/L Alkaline Phosphatase 118 H (39-117) U/L Troponin I High Sens < 2.7 < 2.7 (<3.5-17.0) ng/L Total Protein 8.6 H (6.5-8.0) g/dL Albumin 4.1 (3.5-5.0) g/dL Influenza Type A (PCR) NEGATIVE (Negative) Influenza Type B (PCR) NEGATIVE (Negative) RSV RNA Qual (PCR) NEGATIVE (Negative) SARS-CoV-2 RNA (RT-PCR) NEGATIVE (Negative) Independent Interpretation I performed an independent interpretation of an: EKG (My interpretation of EKG: Normal sinus rhythm, heart rate 60, no ST segment depression or elevation, no T-wave impression, QTC 382) and Plain X-Ray Radiology Impression Discussion of test interpretation with radiology: I have reviewed the radiologist's reading. Radiologist Impression: No consolidation, pleural effusion or pneumothorax. Cardiomediastinal silhouette size is normal. Multilevel thoracolumbar spondylosis. S-shaped curvature of the thoracolumbar spine. Degenerative changes in the acromioclavicular joints. XR/XR chest 2V IMPRESSION: No acute airspace disease. Scoliosis and spondylosis, thoracolumbar spine. Critical Care Time Critical Care Time Critical Care Time: Yes Total Critical Care Time: 45 Attestation: I have personally provided critical care time. Time includes review of lab data, radiology results, discussion with consultants, and monitoring for potential decompensation. Intervention performed as documented. Discharge Plan Discharge Clinical Impression: Chronic GERD Patient Disposition: Home, Self-Care Instructions: Diet for Stomach Ulcers and Gastritis (ED), Gastroesophageal Reflux Disease (ED) Additional Instructions: Please follow-up with your primary care physician tomorrow. If you have any worsening or new symptoms, please return to the emergency room or call 911 Prescriptions: New omeprazole 40 mg capsule,delayed release(DR/EC) 40 mg PO DAILY Qty: 90 0RF No Action bupropion HCl 300 mg tablet extended release 24 hr 450 mg PO QAM valsartan-hydrochlorothiazide 320-12.5 mg tablet 1 tab PO DAILY levothyroxine 100 mcg tablet 100 mcg PO DAILY fluticasone propionate 110 mcg/actuation HFA aerosol inhaler 2 puff inhalation BID ibuprofen 600 mg tablet 600 mg PO TID lorazepam 0.5 mg tablet 0.5 mg PO DAILY PRN rosuvastatin 40 mg tablet 40 mg PO DAILY Referrals: Jocelynn Munoz MD [Physician] - 06/07/24 Print Language: Swedish
[2024-06-01 18:06] LABS: MANUAL DIFF FLAG NO
[2024-06-01 18:09] LABS: Basophils Absolute Auto 0.1 X10*3/uL (0.0-0.2); Basophils Percent Auto 0.7 % (0-2); Eosinophils Absolute Auto 0.4 X10*3/uL (0.0-0.4); Eosinophils Percent Auto 3.1 % (0-4); Hematocrit 40.4 % (37.0-47.0); Hemoglobin 13.1 g/dl (12.0-16.0); Imm Gran Abs Auto 0.04 X10*3/uL (0.00-0.03); Imm Gran Pct Auto 0.3 % (0.0-0.4); Lymphocytes Absolute Auto 4.5 X10*3/uL (1.2-4.9); Lymphocytes Percent Auto 36.8 % (20-40); Mean Corpuscular HGB Conc 32.4 g/dl (31.0-35.0); Mean Corpuscular Volume 83.3 fL (80.0-98.0); Mean Platelet Volume 10.2 fL (9.4-12.3); Monocytes Absolute Auto 0.5 X10*3/uL (0.1-1.2); Monocytes Percent Auto 4.4 % (2-11); Neutrophils Absolute Auto 6.7 x10*3/uL (2.0-8.3); Neutrophils Percent Auto 54.7 % (45-73); Platelet Count 306 X10*3/uL (160-400); Red Blood Count 4.85 X10*6/uL (4.20-5.50); Red Cell Distribution Width 14.2 % (11.0-16.0); White Blood Count 12.2 X10*3/uL (4.8-10.8)
[2024-06-01 18:22] LABS: Alanine Aminotransferase 16 U/L (0-31); Albumin Level 4.1 g/dL (3.5-5.0); Alkaline Phosphatase 118 U/L (39-117); Anion Gap 12 (12-20); Aspartate Amino Transferase 19 U/L (5-31); Bilirubin Direct 0.1 mg/dL (0.0-0.5); Bilirubin Total 0.3 mg/dL (0.0-1.0); Blood Urea Nitrogen 10 mg/dL (9-16); Calcium 9.4 mg/dL (8.4-10.2); Carbon Dioxide 26 mmol/L (22-29); Chloride 107 mmol/L (96-108); Creatinine Clr Calc Pharmacy 86.8; Estimated Glomerular Filt Rate > 60; Glucose Random 89 mg/dL (60-115); Magnesium 2.5 mg/dL (1.6-2.6); Potassium 4.4 mmol/L (3.3-5.1); Sodium 141 mmol/L (135-145); Total Protein 8.6 g/dL (6.5-8.0)
[2024-06-01 18:29] LABS: Troponin-I High Sensitivity < 2.7 ng/L (<3.5-17.0)
[2024-06-01 18:44] LABS: Influenza A PCR NEGATIVE (Negative); Influenza B PCR NEGATIVE (Negative); Resp Syncy Virus RNA Qual PCR NEGATIVE (Negative); SARS COV2 PCR INHOUSE NEGATIVE (Negative)
[2024-06-01 23:57] VITALS: BP 146/103; PULSE 65; RESP 16; TEMP 36.5; O2SAT 97
[2024-06-02 00:40] LABS: Troponin-I High Sensitivity < 2.7 ng/L (<3.5-17.0)
[2024-06-02 02:36] VITALS: BP 141/69; PULSE 66; RESP 16; TEMP 37.1; O2SAT 96
--- OUTSIDE RECORDS SUMMARY | 2024-06-02 02:40 | XMS_ITS | Clinical Summary ---
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 Name Role Phone Unavailable Primary Care Provider Unavailabl e Social History Tobacco Use Types Packs/Day Years Used Date Smoking Tobacco: Never Assessed Comments Unknown Sex and Gender Information Value Date Recorded Sex Assigned at Female 01/28/2022 10:14 AM EDT Legal Sex Female 10:14 AM EDT Gender Identity Female 01/28/2022 10:14 AM EDT Sexual Orientation Straight 01/28/2022 10 :14 AM EDT Last Filed Vital Signs Vital Sign Reading Time Taken Comments Blood Pressure 128/82 09/26/2020 12:06 AM EDT Pulse - - Temperature - - Respiratory Rate - - Oxygen Saturation - - Inhaled Oxygen Concentration - - Weight - - Height - - Body Mass Index - - Plan of Treatment Health Maintenance Due Date Last Done Comments CT Colonography 1964 Colonoscopy 1964 Colorectal Cancer Screening 1964 Depression Screening 1964 FIT DNA/Cologuard 1964 FIT 1964 FOBT 1964 Sigmoidoscopy 1964 Alcohol/Substance Use Screening 1976 Tobacco Screening 1976 DTaP/Tdap/Td Vaccines (1 - Tdap) 11/03/1983 Hepatitis B Vaccines (1 of 3 - 19+ 3-dose series) 11/03/1983 Pap Smear 1985 Cervical Cancer Screening 1994 HPV/Cotest 1994 Mammogram 2004 Pneumococcal Vaccine: 50+ Ye ars (1 of 1 - PCV) 2014 Zoster Vaccines (1 of 2) 2014 COVID-19 Vaccine (2023-2 5 season) 2023 Influenza Vaccine (#1) 2023 RSV Patients and Pa tients Aged 60 years or older (1 - 1-dose 75+ series) 11/03/2039 HIB Vaccines Aged Out No longer eligi ble based on patient's age to complete this topic HPV Vaccines Aged Out No longer eligi ble based on patient's age to complete this topic Hepatitis A Vaccines Aged Out No long er eligible based on patient's age to complete this topic IPV Vaccines Aged Out No longer eligi ble based on patient's age to complete this topic Meningococcal Vaccine Aged Out No jameson nury eligible based on patient's age to complete this topic Pneumococcal Vaccine: Pediat rics (0 to 5 Years) and At-Risk Patients (6 to 49) Years) Aged Out No longer eligible b ased on patient's age to complete this topic RSV under 20 months Aged Out No longe r eligible based on patient's age to complete this topic Rotavirus Vaccines Aged Out No longer eligible based on patient's age to complete this topic
--- OUTSIDE RECORDS SUMMARY | 2024-06-02 02:40 | XMS_ITS | Encounter Summary ---
Author Organization [employer] [facility] Address [address] [facility] [address] [place] [address] Care Team Providers Care Inbound Sales Manager Name Role Phone Unavailable Primary Care Provider Unavailabl e Encounter Details Date Type Department Care Team (Latest Contact Info) Description 08/01/2020 Abstract [facility] CONVERSIONS Dental, Provider, DDS Social History Tobacco Use Types Packs/Day Years Used Date Smoking Tobacco: Never Assessed Comments Unknown Sex and Gender Information Value Date Recorded Sex Assigned at Female 01/28/2022 10:14 AM EDT Legal Sex Female 10:14 AM EDT Gender Identity Female 01/28/2022 10:14 AM EDT Sexual Orientation Straight 01/28/2022 10 :14 AM EDT documented as of this encounter Plan of Treatment Not on file documented as of this encounter Visit Diagnoses Not on filedocumented in this encounter
[2024-06-02] MEDS: Magnesium Hydrox/Alum Hydrox 30 ML ORAL.SUSP PO (02:46)
[2024-06-02] MEDS: Lidocaine HCl Viscous 2 % 15 ML SOLUTION MUCOUS MEM (02:46)
[2024-06-02] MEDS: Famotidine 20 MG TABLET PO (02:46)
[2024-06-02 03:41] VITALS: BP 136/62; PULSE 56; RESP 16; TEMP 36.4; O2SAT 96
[2024-06-02 03:46] VITALS: BP 136/62; PULSE 56; RESP 16; TEMP 36.4; O2SAT 96
== END 2024-06-02 03:46 | disposition home or self-care (01) ==
PROVIDERS: Physician Assistant Medical; Emergency Provider Emergency Medicine; PCP Internal Medicine
DX: K21.9 Gastro-esophageal reflux disease without esophagitis (principal); J45.909 Unspecified asthma, uncomplicated; Z03.818 Encounter for observation for suspected exposure to other biological agents ruled out
CPT/HCPCS: 0241U; 36415; 71046; 80048; 80076; 83735; 84484; 85025; 93005; 99283; 99284

== ENCOUNTER → 2024-06-01 14:36 | Outpatient (BNV) | payer MEDICARE, MEDICAID, SELFPAY | PROVIDERS: PCP Internal Medicine; Visit Provider Internal Medicine Cardiovascular Disease | DX: R07.9 Chest pain, unspecified (principal) | CPT/HCPCS: 93010 ==

== ENCOUNTER → 2024-06-01 15:00 | Outpatient (BNV) | payer MEDICARE, MEDICAID, SELFPAY | PROVIDERS: PCP Internal Medicine; Visit Provider Radiology Diagnostic Radiology | DX: M47.815 Spondylosis without myelopathy or radiculopathy, thoracolumbar region (principal); M41.35 Thoracogenic scoliosis, thoracolumbar region | CPT/HCPCS: 71046 ==

== ENCOUNTER 2024-06-08 10:13 | Outpatient (AMB) | payer MEDICARE, MEDICAID, SELFPAY ==
[2024-06-08 10:15] VITALS: BP 138/74; PULSE 67; O2SAT 98; BMI 35.8
--- NOTE | 2024-06-08 10:15 | A.OFFVIS_ITS ---
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 Patient has been intermittently using Flovent with suboptimal control of his symptoms. She also is not fully compliant with her CPAP therapy. [facility] Medical History GERD (gastroesophageal reflux disease) Asthma Surgical History History of ear surgery H/O eye surgery Family History Father Cancer of pancreas Mother Diabetes Other Arthritis Thyroid disease Social History Household Members: Children Patient Tobacco Use Status: Current everyday Tobacco user Cigarettes Per Day: 3 Current occupational status: disabled Review of Systems Const Denies daytime sleepiness, Denies excessive sweating, Denies fatigue, Denies fever(s), Denies lethargy, Denies malaise, Denies night sweats, Denies snoring and Denies weight loss Eyes Denies blurry vision and Denies itchy eyes ENT Denies nasal congestion, Denies post nasal drip, Denies sinus pain, Denies sinus pressure and Denies other ( Thrush) Card Denies chest pain, Denies pedal edema, Denies dyspnea, Denies orthopnea and Denies paroxysmal nocturnal dyspnea Resp Denies cough, Denies hemoptysis, Denies excessive phlegm production, Denies dyspnea, Denies snoring and Denies wheezing GI Denies abdominal pain and Denies heartburn Musc Denies myalgias, Denies arthralgias and Denies joint swelling Skin/Breast Denies rash Neuro Denies memory loss and Denies seizure-like activity Psych Denies abnormal sleep pattern, Denies anxiety and Denies memory loss Endo Denies excessive sweating, Denies fatigue and Denies heat intolerance Zhen/Lymph Denies easy bruising Aller/Immun Denies itchy eyes, Denies seasonal rhinorrhea and Denies wheezing Physical Exam Vital Signs: Last Vital Signs Pulse 67 06/08/24 10:15 BP 138/74 06/08/24 10:15 Pulse Ox 98 06/08/24 10:15 Oxygen Delivery Method Room Air 06/08/24 10:15 BMI result Body Mass Index 35.8 Const General: no acute distress and alert Nutritional Appearance: obese Orientation/consciousness: Other orientation findings ( oriented) HEENT Head: Yes atraumatic Eyes General: appearance normal, both eyes and all related structures Sclerae: sclerae normal EOM: EOMs intact bilaterally Neck Neck: Yes supple Lymphatic: no lymphadenopathy noted Resp Effort & Inspection: normal respiratory effort and no use of accessory muscles Auscultation: clear to auscultation bilaterally Cardio Rate: regular rate Rhythm: regular rhythm Heart sounds: no gallops, no murmurs and no rubs Skin General skin exam: other ( warm) Extrem General: No clubbing, No cyanosis and No edema Assessment & Plan Assessment & Plan (1) Asthma: Code(s): J45.909 - Unspecified asthma, uncomplicated Category: Medical Plan: Suboptimally controlled as patient was not fully compliant with her Flovent. Patient has been advised is her Flovent twice a day as prescribed. (2) DELANO (obstructive sleep apnea): Code(s): G47.33 - Obstructive sleep apnea (adult) (pediatric) Category: Medical Plan: Suboptimally controlled on CPAP therapy as patient is not fully compliant with her CPAP. Patient has been advised to be more compliant with her CPAP therapy. Medications: New fluticasone propionate 110 mcg/actuation 2 puffs inhalation BID 12 grams 6RF Coding Level of Care Code Est Pt Level 4 (35185) Diagnoses Asthma J45.909 DELANO (obstructive sleep apnea) G47.33
--- OUTSIDE RECORDS SUMMARY | 2024-06-08 12:00 | XMS_ITS | Clinical Summary ---
Author Organization [employer] Address [address] [facility] [address] [place] [address] Care Team Providers Care Director Pharmaceutical Name Role Phone Unavailable Primary Care Provider [...]
--- OUTSIDE RECORDS SUMMARY | 2024-06-08 12:00 | XMS_ITS | Encounter Summary ---
Author Organization [employer] [facility] Address [address] [facility] [address] [place] [address] Care Team Providers Care Coffee Grinder Name Role Phone Unavailable Primary Care Provider Unavailabl e Encounter Details Date Type Department Care Team (Latest Contact Info) Description 08/01/2020 Abstract [facility] CONVERSIONS Dental, Provider, DDS Social History Tobacco [...]
--- OUTSIDE RECORDS SUMMARY | 2024-06-08 12:00 | XMS_ITS | Clinical Summary ---
Author Organization [facility] [address] [place] [address] [place] [phone] Phone Care Team Providers Care Aircraft Shipping Checker Name Role Phone Hoang Hendrix MD Primary Care Provider [phone] Allergies No known active allergies Medications fluticasone propionate (FLONASE) 50 mcg/actuation nasal spray 1 Maple by Each Nare route 2 times daily. 09/05/19 24 Active nicotine (NICODERM CQ) 14 mg/[address] 1 Patch onto the skin every 24 hours. 09/05/19 24 Active buPROPion XL (WELLBUTRIN XL) 150 mg 24 hr tablet Take 1 Tablet by mouth every morning. To take with the 300mg tab for a total of 450mg Active buPROPion XL (WELLBUTRIN XL) 300 mg 24 hr tablet Take 1 Tablet by mouth every morning. To take with the 150mg for a total of 450mg Active cromolyn (OPTICROM) 4 % ophthalmic solution Administer 1-2 drops into both eyes 4 (four) times a day. 10 mL 04/28/19 25 Active valsartan-hydr oCHLOROthiazid e (DIOVAN-HCT) 320-12.5 mg per tablet Take 1 tablet by mouth 1 (one) time each day. 90 tablet 1 04/28/19 25 Active rosuvastatin (CRESTOR) 40 mg tablet Take 1 tablet (40 mg total) by mouth 1 (one) time each day. 90 tablet 1 04/28/19 25 Active levothyroxine (SYNTHROID, LEVOTHROID) 100 mcg tablet Take 1 tablet (100 mcg total) by mouth 1 (one) time each day. 90 tablet 1 04/28/19 25 Active loratadine (CLARITIN) 10 mg tablet TAKE 1 TABLET BY MOUTH 1 TIME EACH DAY. 30 tablet 1 05/25/19 25 Active loratadine (CLARITIN) 10 mg tablet Take 1 tablet (10 mg total) by mouth 1 (one) time each day. 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/07/2023 Hypothyroidism 05/07/2023 Mixed hyperlipidemia 05/07/2023 Primary hypertension 05/07/2023 Encounters Date Type Department Care Team Description 04/28/2024 10:30 AM EST Office Visit Adult Medicine [address] [id number] Emma Odom PA Allergic conjunctivitis of both eyes (Primary Dx); Dental infection; Primary hypertension; Hypothyroidism, unspecified type; Mixed hyperlipidemia; Prediabetes; Anxiety and depression from Last 3 Months Surgical History Surgery Date Site/Laterality Comments OTHER SURGICAL HISTORY N/A PROCEDURE: CA TYMPANOSTOMY LOCAL/TOPICAL ANESTHESIA OTHER SURGICAL HISTORY PROCEDURE: HISTORY OTHER; COMMENT: eye lid operation Medical History Medical History Date Comments Essential (primary) hypertension DX:Essential (primary) hypertension Mixed hyperlipidemia DX:Mixed hy perlipidemia Hypothyroidism DX:Hypothyroidis m Collapse of right lung DX:Collap se of right lung Anxiety and depression DX:Anxiet y and depression Family History Medical History Relation Name Comments Pancreatic cancer Father Diabetes Mother Relation Name Status Comments Father Mother Social History Tobacco Use Types Packs/Day Years Used Date Smoking Tobacco: Every Day Smokeless Tobacco: Never Tobacco Cessation:Ready to Q uit: Not Asked; Counseling Given: Not Answered Alcohol Use Standard Drinks/Week Comments Never 0 (1 standard drink = 0.6 oz pur e alcohol) Comments No Sex and Gender Information Value Date Recorded Sex Assigned at Not on file Legal Sex Female 2:14 PM EST Gender Identity Not on file Sexual Orientation Not on file Obstetrics History Last Filed Vital Signs Vital Sign Reading Time Taken Comments Blood Pressure 116/81 04/28/2024 10:30 AM EST Pulse 77 04/28/2024 10:30 AM EST Temperature 36.7 ??C (98.1 ??F) 04/28/2024 10:[address] Respiratory Rate 18 04/28/2024 10:30 AM EST Oxygen Saturation - - Inhaled Oxygen Concentration - - Weight 93.9 kg (207 lb) 04/28/2024 10:30 AM EST Height 160 cm (5' 3 ) 04/28/2024 10:30 AM EST Body Mass Index 36.67 04/28/2024 10:30 AM EST Plan of Treatment Health Maintenance Due Date Last Done Comments Breast Cancer Screening 1964 DTaP,Tdap,and Td Vaccines (1 - Tdap) 11/03/1983 Hepatitis A Vaccines (1 of 2 - Risk 2-dose series) 11/03/1983 Hepatitis B Vaccines (1 of 3 - 19+ 3-dose series) 11/03/1983 Pneumococcal Vaccine: 50+ Years (1 of 2 - PCV) 11/03/1983 Pneumococcal Vaccine: Pediatrics (0 to 5 Years) and At-Risk Patients (6 to 64 Years) (1 of 2 - PCV) 11/03/1983 Zoster Vaccines (1 of 2) 2014 Depression Screening 04/29/2023 HIV Screening 04/29/2023 Hepatitis C Screening 04/29/2023 Medicare Annual Wellness Visit 04/29/2023 Social Influencers of Health Screening 04/29/2023 COVID-19 Vaccine (2023-2 5 season) 2023 2020, 08/23/2020, 07/26/2020 Influenza Vaccine (#1) 2023 02/07/2010 Hypertension/CHF/CAD Annual BMP Blood Test 09/02/2024 09/03/2023, 09/03/2023 Colorectal Cancer Screening: Colonoscopy 10/25/2027 10/24/2017 Cholesterol Screening (Lipid Panel) 09/02/2028 09/03/2023, 09/03/2023 Cervical Cancer Screening: HPV 09/22/2028 09/23/2023 RSV Immunization Patients 60 + Years Old (1 - 1-dose 75+ series) 11/03/2039 HIB Vaccines Aged Out No longer eligi ble based on patient's age to complete this topic HPV Vaccines Aged Out No longer eligi ble based on patient's age to complete this topic IPV Vaccines Aged Out No longer eligi ble based on patient's age to complete this topic MMR Vaccines Aged Out No longer eligi ble based on patient's age to complete this topic Meningococcal ACWY Vaccine Aged Out N o longer eligible based on patient's age to complete this topic Meningococcal B Vacine Aged Out No lo nger eligible based on patient's age to complete this topic RSV Immunization Patients Under 20 months Aged Out No longer eligible b ased on patient's age to complete this topic Varicella Vaccines Aged Out No longer eligible based on patient's age to complete this topic Procedures Procedure Name Priority Date/Time Associated Diagnosis Comments HPV Routine 09/23/2023 ANNUAL BMP BLOOD TEST Routine 09/03/2023 LIPID PANEL Routine 09/03/2023 COLONOSCOPY Routine 10/24/2017 from Last 3 Months or Most Recently Relevant to Health Maintenance Results * Cervical Cancer Screening: HPV (09/23/2023) [facility] Cervical Cancer Screening: HPV Negative, Abstracted [facility] Provider HEALTH MAINTENANCE Final Result * Annual BMP Blood Test (09/03/2023) [facility] Annual BMP Blood Test Abstracted [facility] Provider HEALTH MAINTENANCE Final Result * (ABNORMAL) Lipid panel (09/03/2023) [facility] LDL/HDL Ratio 5(A) 0 - 4 Triglycerides 165(A) 0 - 150 mg/dL Cholesterol 262(A) 0 - 200 mg/dL HDL 50 >=40 mg/dL LDL Cholesterol 179(A) 0 - 100 mg/dL Blood Venous blood specimen / Unknown Result [facility] Provider LAB BLOOD ORDERABLES Renetta l Result * Colonoscopy (10/24/2017) [facility] Colonoscopy Neative, Abstracted Anatomical Region Laterality Modality Other [facility] Provider HEALTH MAINTENANCE Final Result from Last 3 Months or Most Recently Relevant to Health Maintenance Insurance MEDICAID - [place] MEDICARE Care Teams Aircraft Shipping Checker Relationship Specialty Start Date End Date Hoang Hendrix MD [address] [place] [phone] PCP - General 04/28/23
== END 2024-06-08 10:40 | disposition home or self-care (01) ==
LOC: HO.HPS 10:14
PROVIDERS: PCP Internal Medicine; Visit Provider Internal Medicine Pulmonary Disease
DX: J45.909 Unspecified asthma, uncomplicated (principal); G47.33 Obstructive sleep apnea (adult) (pediatric)
CPT/HCPCS: 99214

== ENCOUNTER → 2024-06-08 10:13 | Outpatient (BNVA) | payer MEDICARE, MEDICAID, SELFPAY | PROVIDERS: PCP Internal Medicine; Visit Provider Internal Medicine Pulmonary Disease | DX: J45.30 Mild persistent asthma, uncomplicated (principal); G47.33 Obstructive sleep apnea (adult) (pediatric) | CPT/HCPCS: 99212 ==